=== PATIENT | female | born 1975 | race Caucasian/White ===

== ENCOUNTER 2017-11-11 14:04 | Observation (INO) | payer BC ==
--- NOTE | 2017-11-11 14:42 | EDPHY ---
HPI/HX/ROS/PE/MDM Narrative: CHIEF COMPLAINT: Vomiting, possible seizures HISTORY OF PRESENT ILLNESS: This patient is a 42 y/o female arriving with her family following possible new onset seizures beginning this morning around 4:00am. She drove to [place] from [place] on Monday, and has been [place] at [place] since . She felt well and had been drinking and eating normally. This morning, her describes an episode of seizure-like activity: the patient woke from sleep at 4am and made an odd noise, then began twitching. Her states her tongue was "jammed up in her mouth" and that she but him when he tried to help with her airway. He states she seemed completely normal again 5 minutes following this incident. She had a similar episode at 6am. She was able to hike out from their camping area, but had another episode in the car and presents to the ED for evaluation. Her states she is diaphoretic during these episodes. Additionally, he states she "kept taking naps" and seemed to be speaking oddly following the naps. The patient denies any known history of seizures. She endorses history of SVT and history of panic attacks. Her current symptoms do not feel similar to these. Additionally, she endorses a headache onset yesterday afternoon. She did use marijuana last night. She denies illicit drug use including cocaine or methamphetamines. No recent fever, cough, cold, rhinorrhea. No chills, chest pain, shortness of breath, palpitations, diarrhea, urinary complaints, lightheadedness. HPI obtained primarily from at bedside. REVIEW OF SYSTEMS: Aside from elements discussed in the HPI, a comprehensive 10-point review of systems was reviewed and is negative. PAST MEDICAL HISTORY: SVT (Cardizem). Panic attacks (Lexapro). SOCIAL HISTORY: and children at bedside. Visiting from [place]. Denies illicit drug use. VITAL SIGNS: Reviewed by me GENERAL: Well-developed, well-nourished, resting comfortably in no respiratory distress. HEENT: Atraumatic. Eyes: No icterus, no injection. Mouth: moist mucous membranes. No erythema or lesions. Neck: supple with no adenopathy. LUNGS: Clear to auscultation bilaterally, no wheezes, rhonchi or rales. CARDIAC: Regular rate and rhythm, no rubs, murmurs or gallops. ABDOMEN: Soft, nontender, nondistended, bowel sounds normal. BACK: No CVA tenderness. EXTREMITIES: No trauma. No edema. Range of motion is normal throughout. NEURO: Alert and oriented, grossly nonfocal. SKIN: Warm and dry, no rash. PSYCHIATRIC: Normal mentation, no agitation. Portions of this note were transcribed by a certified medical biller. I personally performed a history, physical exam, medical decision making, and confirmed accuracy of information the transcribed note. ED Course: 42 y/o female presents following three episodes of seizure activity. Exam largely unremarkable though patient appears fatigued and prefers her to answer questions. Plan for EKG, CT head, and labs including,CT head. Labs. EKG. 12-LEAD EKG: Please see the full report in [facility]. My interpretation: Normal sinus rhythm, rate 81. 15:[address] Chadwick, radiologist. CT head normal. Urine tox screen is positive for marijuana and opiates. 16:02 Patient is having witnessed seizure activity in emergency department. This is her fourth today. Plan to administer 1mg IV Ativan. Oxygen in place. Seizure precautions placed. Her states she admits to taking Lortab last night for muscle pain. Denies any history of IV opioid drug use. Patient will need to be admitted for new-onset seizures. Plan to consult with neurology. 16:[address] Sherman, hospitalist. 16:[address] Post, neurologist. Plan for MRI for further evaluation. Plan to administer 1000mg IV Keppra. 17:[address] Chan, radiologist. MRI brain is negative for acute processes. No seizure focus. MDM: Differential diagnoses for the patient's symptom complex was considered including but not limited to electrolyte abnormalities, head trauma, intracranial pathology, dehydration, high altitude cerebral edema, pre-existing seizure disorder, drug or alcohol abuse, drug or alcohol withdrawal. - Data Points Imaging Results: Imaging Impressions Head CT 11/11/17 14:45 Impression: 1. No significant intracranial abnormality seen. If symptoms worsen, additional imaging may be necessary. Findings discussed with Lilly Isaac MD at 15:35 hour, 11/11/2017. Brain MRI 11/11/17 16:09 Impression: Normal MRI of the brain with no seizure focus identified. Results called to Lilly Isaac MD on 11/11/2017 at 17:44. Imaging: Discussed imaging studies w/ physically impaired teacher Radiologist Laboratory Results: Laboratory Results 11/11/17 14:22 11/11/17 14:22 11/11/17 11/11/17 11/11/17 14:50 14:27 14:22 WBC RBC Hgb POC Hgb 13.9 gm/dL gm/dL (12.6-16.3) Hct POC Hct 41 % % (38-47) MCV MCH MCHC RDW Plt Count MPV Neut % (Auto) Lymph % (Auto) [place] % (Auto) Eos % (Auto) Baso % (Auto) Nucleat RBC Rel Count Absolute Neuts (auto) Absolute Lymphs (auto) Absolute Monos (auto) Absolute Eos (auto) Absolute Basos (auto) Absolute Nucleated RBC Immature Gran % Immature Gran # POC Sodium 141 mEq/L mEq/L (135-145) Sodium POC Potassium 3.3 mEq/L mEq/L (3.3-5.0) Potassium POC Chloride 107 mEq/L mEq/L (97-110) Chloride Carbon Dioxide Anion Gap POC BUN 11 mg/dL mg/dL (7-23) BUN Creatinine POC Creatinine 0.6 mg/dL mg/dL (0.6-1.0) Estimated GFR Glucose POC Glucose 109 mg/dL H mg/dL (70-100) Calcium Total Bilirubin Conjugated Bilirubin Unconjugated Bilirubin AST ALT Alkaline Phosphatase Troponin I Total Protein Albumin Beta HCG, Qual NEGATIVE Urine Color YELLOW Urine Appearance CLEAR Urine pH 5.0 (5.0-7.5) Ur Specific [place] 1.017 (1.002-1.030) Urine Protein 1+ H (NEGATIVE) Urine Ketones 2+ H (NEGATIVE) Urine Blood 2+ H (NEGATIVE) Urine Nitrate NEGATIVE (NEGATIVE) Urine Bilirubin NEGATIVE (NEGATIVE) Urine Urobilinogen NEGATIVE EU EU (0.2-1.0) Ur Leukocyte Esterase NEGATIVE (NEGATIVE) Urine RBC 5-10 /hpf H /hpf (0-3) Urine WBC 5-10 /hpf H /hpf (0-3) Ur Epithelial Cells TRACE /lpf /lpf (NONE-1+) Urine Bacteria TRACE /hpf H /hpf (NONE SEEN) Hyaline Casts 5-15 /lpf /lpf (0-1) Urine Mucus TRACE /lpf /lpf (NONE-1+) Urine Glucose NEGATIVE (NEGATIVE) Urine Opiates Screen NON-NEGATIVE H (NEGATIVE) Urine Barbiturates NEGATIVE (NEGATIVE) Ur Phencyclidine Scrn NEGATIVE (NEGATIVE) Ur Amphetamine Screen NEGATIVE (NEGATIVE) U Benzodiazepines Scrn NEGATIVE (NEGATIVE) Urine Cocaine Screen NEGATIVE (NEGATIVE) U Marijuana (THC) Screen NON-NEGATIVE H (NEGATIVE) 11/11/17 11/11/17 14:22 14:22 WBC 13.19 10^3/uL H 10^3/uL (3.80-9.50) RBC 3.94 10^6/uL L 10^6/uL (4.18-5.33) Hgb 12.6 g/dL g/dL (12.6-16.3) POC Hgb Hct 37.1 % L % (38.0-47.0) POC Hct MCV 94.2 fL fL (81.5-99.8) MCH 32.0 pg pg (27.9-34.1) MCHC 34.0 g/dL g/dL (32.4-36.7) RDW 14.0 % % (11.5-15.2) Plt Count 365 10^3/uL 10^3/uL (150-400) MPV 9.3 fL fL (8.7-11.7) Neut % (Auto) 81.3 % H % (39.3-74.2) Lymph % (Auto) 10.3 % L % (15.0-45.0) [place] % (Auto) 7.4 % % (4.5-13.0) Eos % (Auto) 0.3 % L % (0.6-7.6) Baso % (Auto) 0.4 % % (0.3-1.7) Nucleat RBC Rel Count 0.0 % % (0.0-0.2) Absolute Neuts (auto) 10.73 10^3/uL H 10^3/uL (1.70-6.50) Absolute Lymphs (auto) 1.36 10^3/uL 10^3/uL (1.00-3.00) Absolute Monos (auto) 0.97 10^3/uL H 10^3/uL (0.30-0.80) Absolute Eos (auto) 0.04 10^3/uL 10^3/uL (0.03-0.40) Absolute Basos (auto) 0.05 10^3/uL 10^3/uL (0.02-0.10) Absolute Nucleated RBC 0.00 10^3/uL 10^3/uL (0-0.01) Immature Gran % 0.3 % % (0.0-1.1) Immature Gran # 0.04 10^3/uL 10^3/uL (0.00-0.10) POC Sodium Sodium 139 mEq/L mEq/L (135-145) POC Potassium Potassium 3.7 mEq/L mEq/L (3.3-5.0) POC Chloride Chloride 106 mEq/L mEq/L (97-110) Carbon Dioxide 17 mEq/l L mEq/l (22-31) Anion Gap 16 mEq/L mEq/L (8-16) POC BUN BUN 11 mg/dL mg/dL (7-23) Creatinine 0.6 mg/dL mg/dL (0.6-1.0) POC Creatinine Estimated GFR > 60 Glucose 102 mg/dL H mg/dL (70-100) POC Glucose Calcium 9.5 mg/dL mg/dL (8.5-10.4) Total Bilirubin 0.6 mg/dL mg/dL (0.1-1.4) Conjugated Bilirubin 0.3 mg/dL mg/dL (0.0-0.5) Unconjugated Bilirubin 0.3 mg/dL mg/dL (0.0-1.1) AST 29 IU/L IU/L (14-46) ALT 20 IU/L IU/L (9-52) Alkaline Phosphatase 68 IU/L IU/L (38-126) Troponin I < 0.012 ng/mL ng/mL (0.000-0.034) Total Protein 7.8 g/dL g/dL (6.3-8.2) Albumin 4.8 g/dL g/dL (3.5-5.0) Beta HCG, Qual Urine Color Urine Appearance Urine pH Ur Specific [place] Urine Protein Urine Ketones Urine Blood Urine Nitrate Urine Bilirubin Urine Urobilinogen Ur Leukocyte Esterase Urine RBC Urine WBC Ur Epithelial Cells Urine Bacteria Hyaline Casts Urine Mucus Urine Glucose Urine Opiates Screen Urine Barbiturates Ur Phencyclidine Scrn Ur Amphetamine Screen U Benzodiazepines Scrn Urine Cocaine Screen U Marijuana (THC) Screen Medications Given: Discontinued Medications Levetiracetam (Keppra (Premix)) 100 mls @ 400 mls/hr IV EDNOW ONE Stop: 11/11/17 16:36 Last Admin: 11/11/17 17:24 Dose: 100 mls Lorazepam (Ativan Injection) 1 mg IVP EDNOW ONE Stop: 11/11/17 16:06 Last Admin: 11/11/17 16:05 Dose: 1 mg Point of Care Test Results: Chemistry 11/11/17 14:27 POC Sodium 141 mEq/L mEq/L (135-145) POC Potassium 3.3 mEq/L mEq/L (3.3-5.0) POC Chloride 107 mEq/L mEq/L (97-110) POC BUN 11 mg/dL mg/dL (7-23) POC Creatinine 0.6 mg/dL mg/dL (0.6-1.0) POC Glucose 109 mg/dL H mg/dL (70-100) ISTAT H&H 11/11/17 14:27 POC Hgb 13.9 gm/dL gm/dL (12.6-16.3) POC Hct 41 % % (38-47) General Time Seen by Provider: 11/11/17 14:34 Initial Vital Signs: Initial Vital Signs Temperature (C) 36.7 C 11/11/17 14:07 Heart Rate 107 H 11/11/17 14:07 Respiratory Rate 20 11/11/17 14:07 Blood Pressure 165/83 H 11/11/17 14:07 O2 Sat (%) 96 11/11/17 14:07 O2 Delivery Mode Non-Rebreather Mask O2 (L/minute) 15 Allergies/Adverse Reactions: No Known Allergies Allergy (Verified 11/11/17 18:55) Home Medications: Medication Instructions Recorded Diltiazem HCl [Cartia Xt] 1 cap PO HS 11/11/17 Escitalopram Oxalate [Escitalopram 1 tab PO HS 11/11/17 Oxalate] Ibuprofen [Motrin (*)] 600 mg PO DAILY PRN 11/11/17 Departure - Departure Disposition: [facility] Acute Clinical Impression: Recurrent seizures, New onset seizure Condition: Fair Report Scribed for: Lilly Isaac Report Scribed by: Suzette Harmon Date of Report: 11/11/17 Time of Report: 21:39
--- NOTE | 2017-11-11 14:44 | CPEKG ---
Heart Rate: 81 RR Interval: 741 P-R Interval: 156 QRSD Interval: 94 QT Interval: 412 QTC Interval: 479 P Isom: 64 QRS Isom: 56 T Wave Isom: 44 EKG Severity - NORMAL ECG - EKG Impression: SINUS RHYTHM Electronically Signed By: Mauro Melendez 15-Nov-2017 09:36:29
[2017-11-11 14:59] LABS: PLATELET COUNT 365 10^3/uL (150-400)
[2017-11-11] MEDS ORDERED: LORazepam 2 MG/ML INJ ONE (16:03)
[2017-11-11] MEDS ORDERED: LORazepam 2 MG/ML INJ IVP ONE (16:05)
[2017-11-11] MEDS ORDERED: levETIRAcetam 1000MG/NACL 100 ML IV ONE (16:22)
[2017-11-11] MEDS ORDERED: ONDANSETRON DISINTEGRATING 4 MG TAB PO PRN (16:41)
[2017-11-11] MEDS ORDERED: oxyCODONE IR 5 MG TAB PO PRN (16:41)
[2017-11-11] MEDS ORDERED: ACETAMINOPHEN 325 MG TAB PO PRN (16:41)
[2017-11-11] MEDS ORDERED: PROMETHAZINE HCL 25 MG/ML INJ IVP PRN (16:41)
[2017-11-11] MEDS ORDERED: ONDANSETRON 4 MG/2 ML VIAL IVP PRN (16:41)
[2017-11-11] MEDS ORDERED: LORazepam 0.5 MG TAB PO PRN (16:41)
[2017-11-11] MEDS ORDERED: GADOBUTROL 10 ML VIAL IVP ONE (16:54)
[2017-11-11] MEDS ORDERED: NS 1,000 ML IV SCH (19:45)
--- NOTE | 2017-11-11 19:55 | PDGENHP ---
History and Physical - Chief Complaint seizure - History of Present Illness 42 yo F with PMH of SVT and "panic attacks" presenting with several seizure prior to and following arrival in the ER. Patient is from [place] and she and her family recently drove here for a camping trip. She had been feeling well apparently last night, did smoke some marijuana and then went to sleep. noted she was twitching and making odd noises which woke him, he then witnessed what appeared to be patient having a seizure and was nervous that her tongue was in the back of her throat, and when he tried to clear it, she bit him. She had another episode shortly after the first, was able to hike out of the camping siet, and then had a recurrence while driving in the car. Fourth episode was witnessed by staff in ER at approximately 4pm. notes that each episode was preceded by her talking but not really making sense--he states it seemed like she knew what she wanted to say, but it came out like nonsense. She was very tired after each episode but otherwise seemed herself. also notes that both he and patients mother have been aware of patient having episodes that were felt to be panic attacks, during which patient would appear "zoned out" for several minutes, be unable to answer questions or interact. She would have a sense prior to these episodes that one was coming on and would warn her that she is about to have a panic attack. These episodes were never associated with full body twitching and complete LOC such as the ones today however. The prior episodes did seem to be triggered by her menstrual cycle which she is currently either just ending or still on. Of note, the majority of this history obtained from patients and by chart review as patient remains very somnolent at the time of my evaluation. History Information - Allergies/Home Medication List Allergies/Adverse Reactions: No Known Allergies Allergy (Verified 11/11/17 18:55) Home Medications: Diltiazem HCl [Cartia Xt] 1 cap PO HS 11/11/17 [Last Taken 11/10/17] Escitalopram Oxalate [Escitalopram Oxalate] 1 tab PO HS 11/11/17 [Last Taken 10/23] Ibuprofen [Motrin (*)] 600 mg PO DAILY PRN 11/11/17 [Last Taken 11/10/17] I have personally reviewed and updated: family history, medical history, social history, surgical history - Past Medical History SVT Additional medical history: "panic attacks" as per hpi - Surgical History Additional surgical history: fibroid ablation - Family History Additional family history: no seizures - Social History Smoking Status: Current every day smoker Alcohol Use: Occasionally Drug Use: Marijuana Additional social history: , 2 children, works as a project engineering director, resides in [place] near [place] Review of Systems Review of Systems: ROS: 10pt was reviewed & negative except for what was stated in HPI & below Physical Exam Physical Exam: Temp Pulse Resp BP Pulse Ox 36.9 C 92 18 113/61 94 11/11/17 19:08 11/11/17 19:08 11/11/17 19:08 11/11/17 19:08 11/11/17 19:08 Constitutional: no apparent distress, appears nourished Eyes: PERRL, anicteric sclera Ears, Nose, Mouth, Throat: no oral mucosal ulcers, dry mucous membranes Cardiovascular: regular rate and rhythym, no murmur, rub, or gallop, No edema Respiratory: no respiratory distress, no rales or rhonchi Gastrointestinal: normoactive bowel sounds, soft, non-tender abdomen Skin: warm, normal color Musculoskeletal: full muscle strength, no muscle tenderness Neurologic: AAOx3 (somnolent but easily arousable) Psychiatric: interacting appropriately, not anxious Lab Data & Imaging Review 11/11/17 14:22 11/11/17 14:22 WBC 13.19 10^3/uL (3.80-9.50) H 11/11/17 14:22 RBC 3.94 10^6/uL (4.18-5.33) L 11/11/17 14:22 Hgb 12.6 g/dL (12.6-16.3) 11/11/17 14:22 POC Hgb 13.9 gm/dL (12.6-16.3) 11/11/17 14:27 Hct 37.1 % (38.0-47.0) L 11/11/17 14:22 POC Hct 41 % (38-47) 11/11/17 14:27 MCV 94.2 fL (81.5-99.8) 11/11/17 14:22 MCH 32.0 pg (27.9-34.1) 11/11/17 14:22 MCHC 34.0 g/dL (32.4-36.7) 11/11/17 14:22 RDW 14.0 % (11.5-15.2) 11/11/17 14:22 Plt Count 365 10^3/uL (150-400) 11/11/17 14:22 MPV 9.3 fL (8.7-11.7) 11/11/17 14:22 Neut % (Auto) 81.3 % (39.3-74.2) H 11/11/17 14:22 Lymph % (Auto) 10.3 % (15.0-45.0) L 11/11/17 14:22 [place] % (Auto) 7.4 % (4.5-13.0) 11/11/17 14:22 Eos % (Auto) 0.3 % (0.6-7.6) L 11/11/17 14:22 Baso % (Auto) 0.4 % (0.3-1.7) 11/11/17 14:22 Nucleat RBC Rel Count 0.0 % (0.0-0.2) 11/11/17 14:22 Absolute Neuts (auto) 10.73 10^3/uL (1.70-6.50) H 11/11/17 14:22 Absolute Lymphs (auto) 1.36 10^3/uL (1.00-3.00) 11/11/17 14:22 Absolute Monos (auto) 0.97 10^3/uL (0.30-0.80) H 11/11/17 14:22 Absolute Eos (auto) 0.04 10^3/uL (0.03-0.40) 11/11/17 14:22 Absolute Basos (auto) 0.05 10^3/uL (0.02-0.10) 11/11/17 14:22 Absolute Nucleated RBC 0.00 10^3/uL (0-0.01) 11/11/17 14:22 Immature Gran % 0.3 % (0.0-1.1) 11/11/17 14:22 Immature Gran # 0.04 10^3/uL (0.00-0.10) 11/11/17 14:22 POC Sodium 141 mEq/L (135-145) 11/11/17 14:27 Sodium 139 mEq/L (135-145) 11/11/17 14:22 POC Potassium 3.3 mEq/L (3.3-5.0) 11/11/17 14:27 Potassium 3.7 mEq/L (3.3-5.0) 11/11/17 14:22 POC Chloride 107 mEq/L (97-110) 11/11/17 14:27 Chloride 106 mEq/L (97-110) 11/11/17 14:22 Carbon Dioxide 17 mEq/l (22-31) L 11/11/17 14:22 Anion Gap 16 mEq/L (8-16) 11/11/17 14:22 POC BUN 11 mg/dL (7-23) 11/11/17 14:27 BUN 11 mg/dL (7-23) 11/11/17 14:22 Creatinine 0.6 mg/dL (0.6-1.0) 11/11/17 14:22 POC Creatinine 0.6 mg/dL (0.6-1.0) 11/11/17 14:27 Estimated GFR > 60 11/11/17 14:22 Glucose 102 mg/dL (70-100) H 11/11/17 14:22 POC Glucose 109 mg/dL (70-100) H 11/11/17 14:27 Calcium 9.5 mg/dL (8.5-10.4) 11/11/17 14:22 Total Bilirubin 0.6 mg/dL (0.1-1.4) 11/11/17 14:22 Conjugated Bilirubin 0.3 mg/dL (0.0-0.5) 11/11/17 14:22 Unconjugated Bilirubin 0.3 mg/dL (0.0-1.1) 11/11/17 14:22 AST 29 IU/L (14-46) 11/11/17 14:22 ALT 20 IU/L (9-52) 11/11/17 14:22 Alkaline Phosphatase 68 IU/L (38-126) 11/11/17 14:22 Troponin I < 0.012 ng/mL (0.000-0.034) 11/11/17 14:22 Total Protein 7.8 g/dL (6.3-8.2) 11/11/17 14:22 Albumin 4.8 g/dL (3.5-5.0) 11/11/17 14:22 Beta HCG, Qual NEGATIVE 11/11/17 14:22 Urine Color YELLOW 11/11/17 14:50 Urine Appearance CLEAR 11/11/17 14:50 Urine pH 5.0 (5.0-7.5) 11/11/17 14:50 Ur Specific [place] 1.017 (1.002-1.030) 11/11/17 14:50 Urine Protein 1+ (NEGATIVE) H 11/11/17 14:50 Urine Ketones 2+ (NEGATIVE) H 11/11/17 14:50 Urine Blood 2+ (NEGATIVE) H 11/11/17 14:50 Urine Nitrate NEGATIVE (NEGATIVE) 11/11/17 14:50 Urine Bilirubin NEGATIVE (NEGATIVE) 11/11/17 14:50 Urine Urobilinogen NEGATIVE EU (0.2-1.0) 11/11/17 14:50 Ur Leukocyte Esterase NEGATIVE (NEGATIVE) 11/11/17 14:50 Urine RBC 5-10 /hpf (0-3) H 11/11/17 14:50 Urine WBC 5-10 /hpf (0-3) H 11/11/17 14:50 Ur Epithelial Cells TRACE /lpf (NONE-1+) 11/11/17 14:50 Urine Bacteria TRACE /hpf (NONE SEEN) H 11/11/17 14:50 Hyaline Casts 5-15 /lpf (0-1) 11/11/17 14:50 Urine Mucus TRACE /lpf (NONE-1+) 11/11/17 14:50 Urine Glucose NEGATIVE (NEGATIVE) 11/11/17 14:50 Urine Opiates Screen NON-NEGATIVE (NEGATIVE) H 11/11/17 14:50 Urine Barbiturates NEGATIVE (NEGATIVE) 11/11/17 14:50 Ur Phencyclidine Scrn NEGATIVE (NEGATIVE) 11/11/17 14:50 Ur Amphetamine Screen NEGATIVE (NEGATIVE) 11/11/17 14:50 U Benzodiazepines Scrn NEGATIVE (NEGATIVE) 11/11/17 14:50 Urine Cocaine Screen NEGATIVE (NEGATIVE) 11/11/17 14:50 U Marijuana (THC) Screen NON-NEGATIVE (NEGATIVE) H 11/11/17 14:50 Visualized and Interpreted imaging results: Yes Interpretation: head CT: normal. Brain MRI: normal Visualized and Interpreted EKG results: Yes EKG Interpretation: Positive for: normal sinsus rhythm Assessment & Plan Assessment: 42 yo F presenting with recurrent seizures # seizure, recurrent: this is a new diagnosis for this patient, imaging unremarkable, no suggestion of infection or metabolic derangement and nothing by history to raise concern for withdrawal or intoxication as being the cause. 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 Has been started on keppra and will continue, neurology has been consulted. Will check TSH, mag and phos as well. # acute encephalopathy: patient remains quite somnolent though arousable and is oriented when awake. Suspect this is a combination of medication side effect, post ictal state and lack of sleep. Will continue to monitor, non focal and imaging normal. # leukocytosis: suspect this is a stress response, no other s/s of infection, will recheck in am # observation status Patient new to my care. Care plan reviewed with ER doctor including plans for keppra. Further hx obtained from patients present at bedside.
[2017-11-11] MEDS ORDERED: DILTIAZEM XR 240 MG CAP PO SCH ×2 (20:15→21:00)
[2017-11-11] MEDS ORDERED: ESCITALOPRAM OXALATE 10 MG TAB PO SCH (21:00)
[2017-11-11] MEDS: levETIRAcetam 500 MG TAB PO SCH (21:42)
[2017-11-12 08:33] VITALS: BP 116/56
[2017-11-12] MEDS ORDERED: ENOXAPARIN 40 MG/0.4 ML SYR SC SCH (09:00)
[2017-11-12] MEDS: levETIRAcetam 500 MG TAB PO SCH (09:02)
--- NOTE | 2017-11-12 11:46 | GCON ---
[f rep st] CONSULTATION NEUROLOGY CONSULTATION. REFERRING PHYSICIAN: Ross Sherman MD CHIEF COMPLAINT: Seizures. HISTORY OF PRESENT ILLNESS: Ms. Gladys Gerber is a very pleasant 42-year-old lady without any definite epilepsy risk factors. She did have a fall at age 5 with a laceration to her mid forehead according to her parents who are present today. They are not sure if she lost consciousness. Around the beginning of her 20s, she began having recurrent spells of intense Amy Vu with alteration of consciousness followed by diaphoresis, nausea and sometimes vomiting lasting 1 to 2 minutes. Afterwards, she feels "depleted" for around 10 minutes. These have been previously diagnosed as panic attacks. She has never had a convulsive event until yesterday. They are from [place] in the [facility] and went tent camping [place]000 [place] when she had a generalized tonic-clonic seizure out of sleep around 4:00 a.m. yesterday. While bringing her down to [facility], she had a 2nd and ultimately had 4 generalized tonic-clonic seizures in a matter of hours. She was treated in our ED with benzodiazepines, which stopped all seizure activity, and then loaded with Keppra and she has been stable and done well overnight without further seizures. She had an MRI brain in the emergency department, which was normal without any epileptogenic abnormalities. She had an electrocardiogram as well, which showed sinus rhythm. Laboratory evaluation was consistent with seizure with a mild leukocytosis, low carbon dioxide at 17. Toxicology showed non- negative results for opiates and marijuana. REVIEW OF SYSTEMS: 10 point system was done, only pertinent to the HPI. For past medical history, social history, family history, home medications, allergies, see Dr. Sherman's history and physical please. PHYSICAL EXAM: Vital signs 122/70, temperature 36.9, afebrile, no meningismus, saturating at 97%. GENERAL: In no acute distress. Very pleasant lady. She does feel "tired" from her seizures and medications yesterday. HIGHER MENTAL FUNCTION: She is lucid and names 5/5, follows commands 5/5, and repeats 5/5. No aphasia. CRANIAL NERVES: Normal 2 through 7 and 12. MOTOR: Normal strength throughout. TONE: Normal. SENSORY: Normal to light touch in all 4 extremities. COORDINATION: Normal in upper extremities. IMPRESSION AND PLAN: 1. New-onset seizures. 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 She does not have any definite epilepsy risk factors outside of a mild head trauma at the age of 5. It appears that she had her first secondary generalized tonic-clonic seizures yesterday in the setting of high altitude and having taken a pain medication for a headache. Going forward, she will be on indefinite driving restrictions and seizure precautions. She will not drive and follow seizure precautions until she establishes care with a neurologist/epileptologist in [place] to take over her care. She has been loaded on Keppra and taking 500 mg twice daily since admission. No side effects from Keppra thus far. I have requested the hospitalist team give her a prescription for 30 days and 1 refill giving her 2 months to establish care with her neurologist in [place]. They are agreeable. The patient is agreeable to driving restrictions and seizure precautions indefinitely. We had a long discussion regarding factors which can lower the seizure threshold including medication noncompliance, excessive alcohol use and sleep deprivation. We discussed potential risks, benefits and alternatives of Keppra including moodiness, rage, depression, suicidal and homicidal ideation. She will likely discharge home later today and stay in a hotel in the area and then drive home tomorrow morning back to [place]. They will return to the emergency department for any recurrent seizures or neurological symptoms. No further recommendations. We will sign off and follow up as needed. Please do not hesitate to call if there are any questions or changes in her neurologic status with this very pleasant patient. Seventy total minutes on floor time reviewing records, MRI imaging, direct counseling with the patient and coordination of care. /[id number]/MODL MTDD
--- NOTE | 2017-11-12 15:36 | GDS ---
[f rep st] DISCHARGE SUMMARY PRIMARY CARE PROVIDER: Located in [place]. 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 HISTORY OF PRESENT ILLNESS: The patient is a pleasant 42-year-old female who was visiting [facility] a camping trip when she was observed to have seizure activity. She came to the [facility] emergency room for further evaluation. There she had a CT scan of her head, which did not sh ow any significant intracranial abnormality. An MRI of the brain with and without IV contrast was al so obtained. This was read as normal MRI of the brain with no seizure focus identified. Neurology w as consulted on her case. Interestingly, the patient presents with a 10- to 15-year history of what were called panic attacks, although the clinical suspicion is that she may have had temporal lobe epi lepsy. The patient was treated with Keppra and was stable overnight. It was felt that she was stabl e for discharge. She had already begun looking into a neurologist in [place] to consult with. I revi ewed the case with Dr. Post with neurology, and it was recommended that she continue with Keppra at 50 0 mg twice a day. I have given her a bigger prescription for this today for 1 month as well as anoth er refill to allow adequate time to establish with a neurologist in [place]. Dr. Tinoco did discuss with the patient as far as not driving. She appeared to understand this instruction and felt that she wo uld be able to manage as she works from home and has multiple family members who live near her who wo uld be able to help out with any transportation if her was not able to. Otherwise, her medic ations for paroxysmal supraventricular tachycardia were continued as well as Lexapro. EXAM: VITAL SIGNS: On day of discharge, temperature 36.9, blood pressure 116/56, heart rate 76, res pirations 20, saturating 94% on room air. GENERAL: Patient appeared comfortable, sitting in a chair at the bedside. HEART: Regular. LUNGS: Normal respiratory effort. ABDOMEN: Nondistended. : No Rice catheter in place. EXTREMITIES: No edema appreciated. NOTABLE STUDIES: Head CT and MRI as detailed above. White blood cell count 13, hemoglobin 12, platelets 365. Sodium 139, potassium 3.7, chloride 106, bi carb 17, BUN 11, creatinine 0.6, and glucose of 102. Liver function tests within normal limits. Bet a HCG negative. Urine toxicology, negative for THC and opiates. DISCHARGE MEDICATIONS: 1. Keppra 500 mg twice a day. 2. Lexapro 10 mg daily. 3. Diltiazem ER 240 mg nightly. DISCHARGE INSTRUCTIONS: Followup with her primary provider is recommended 1-2 weeks' time for reasse ssment. We have also recommended establishing with Neurology in [place] closer to home. She has alre joshua made arrangements to establish. We did burn a copy of her imaging studies here during this hospi talization for her to bring with her to [place]. 35 minutes' time dedicated to discharge efforts. /[id number]/MODL
== END 2017-11-12 12:58 | disposition home or self-care (01) ==
LOC: F2N 18:36
PROVIDERS: ADMIT Internal Medicine; ATTEND Internal Medicine
DX: R56.9 Unspecified convulsions (principal)
CPT/HCPCS: 70450; 70553; 93005; G0378; 80305; 82435-PO; 82565-PO; 82947-PO; 84132-PO; 84295-PO; 84520-PO; 85014-PO; 96374; A9585; J1650; J1953; J2060